=== PATIENT | male | born 1935 | race Caucasian/White ===

== ENCOUNTER 2020-12-19 04:59 | Inpatient (IN) | payer OTHER, BC ==
[2020-12-19 05:14] VITALS: BMI 27.3
[2020-12-19 05:46] LABS: EOS % 6.3 % (0-4.5); HEMATOCRIT 29.5 % (35.4-49); MCH 30.7 pg (25.7-33.7); MEAN CELL VOLUME 90.5 fl (80-96); MEAN PLT VOLUME 7.5 fl (7.5-11.1); MONO % 8.5 % (3.8-10.2); NEUT % 61.2 % (42.8-82.8); PLATELET COUNT 110 K/MM3 (134-434); RBC 3.26 M/mm3 (4.00-5.60); RDW 16.9 % (11.9-15.9); WHITE BLOOD COUNT 2.2 K/mm3 (4.0-10.0)
[2020-12-19 06:11] LABS: CHLORIDE 114 mmol/L (98-107); SODIUM 143 mmol/L (136-145)
[2020-12-19 06:13] LABS: ALBUMIN 3.2 g/dl (3.4-5.0); ANION GAP 6 MMOL/L (8-16); BLOOD UREA NITROGEN 27.5 mg/dL (7-18); CALCIUM 8.5 mg/dL (8.5-10.1); CO2 23 mmol/L (21-32); GLUCOSE,RANDOM 95 mg/dL (74-106)
[2020-12-19 06:16] LABS: SGOT/AST 61 U/L (15-37); SGPT/ALT 41 U/L (13-61)
[2020-12-19 06:17] LABS: CREATININE 1.9 mg/dL (0.55-1.3)
[2020-12-19 06:18] LABS: BILIRUBIN,TOTAL 0.6 mg/dL (0.2-1)
[2020-12-19 06:19] LABS: ALK PHOS 64 U/L (45-117)
[2020-12-19] MEDS ORDERED: PANTOPRAZOLE 40 MG TABLET ONE (12:23)
[2020-12-19] MEDS ORDERED: amLODIPine BESYLATE 5 MG TABLET (FP) ONE (12:23)
[2020-12-19] MEDS ORDERED: LEVOTHYROXINE NA 25 MCG TABLET (FP) ONE (12:24)
[2020-12-19] MEDS ORDERED: CARVEDILOL 12.5 MG TABLET (FP) ONE (12:24)
[2020-12-19] MEDS ORDERED: CARVEDILOL 3.125 MG TABLET (FP) ONE ×2 (12:24→12:29)
[2020-12-19] MEDS ORDERED: TAMSULOSIN HCL 0.4 MG CAP ONE (12:25)
[2020-12-19] MEDS ORDERED: ASCORBIC ACID 500 MG TABLET (FP) ONE (12:29)
[2020-12-19] MEDS: MULTIVITAMINS THER W-MINERALS COMBO TABLET (FP) PO SCH (12:45)
[2020-12-19] MEDS: INSULIN SLIDING SCALE (NOVOLOG) 1 VIAL SQ SCH ×3 (12:45→21:58)
[2020-12-19] MEDS: TAMSULOSIN HCL 0.4 MG CAP PO SCH (12:45)
[2020-12-19] MEDS: CHOLECALCIFEROL (VIT D3) 5000 UNITS (125 MCG) CAP PO SCH (12:45)
[2020-12-19] MEDS: FINASTERIDE 5 MG TABLET (FP) PO SCH (12:45)
[2020-12-19] MEDS: ASCORBIC ACID 500 MG TABLET (FP) PO SCH (12:45)
[2020-12-19] MEDS: amLODIPine BESYLATE 5 MG TABLET (FP) PO SCH (12:45)
[2020-12-19] MEDS: PANTOPRAZOLE 40 MG TABLET PO SCH (12:45)
[2020-12-19] MEDS: LEVOTHYROXINE NA 25 MCG TABLET (FP) PO SCH (12:45)
[2020-12-19] MEDS: FENOFIBRIC ACID 135 MG CAP PO SCH (12:45)
[2020-12-19] MEDS: CARVEDILOL 3.125 MG TABLET (FP) PO SCH (12:45)
[2020-12-19] MEDS: CARVEDILOL 12.5 MG TABLET (FP) PO SCH ×2 (12:45→21:58)
[2020-12-19] MEDS ORDERED: WARFARIN NA 1 MG TABLET ONE (17:37)
[2020-12-19] MEDS ORDERED: WARFARIN NA 1 MG TABLET PO SCH (18:00)
[2020-12-19] MEDS ORDERED: ROSUVASTATIN CA 10 MG TABLET (FP) PO SCH (22:00)
[2020-12-19] MEDS ORDERED: PATIENT'S OWN MEDICATION (NON-FORMULARY) (Ubidecarenone [Coq-10] 100 MG Capsule) PO SCH (22:00)
[2020-12-19] MEDS ORDERED: SIMETHICONE 80 MG TAB.CHEW (FP) PO PRN (22:10)
[2020-12-20] MEDS: INSULIN SLIDING SCALE (NOVOLOG) 1 VIAL SQ SCH (06:19)
[2020-12-20] MEDS: LEVOTHYROXINE NA 25 MCG TABLET (FP) PO SCH (06:19)
[2020-12-20 06:34] VITALS: TEMP 98.2
[2020-12-20] MEDS ORDERED: PT OWN MED DRAWER 7, Y5N ONE (09:22)
[2020-12-20] MEDS: PANTOPRAZOLE 40 MG TABLET PO SCH (09:33)
[2020-12-20] MEDS: FINASTERIDE 5 MG TABLET (FP) PO SCH (09:33)
[2020-12-20] MEDS: MULTIVITAMINS THER W-MINERALS COMBO TABLET (FP) PO SCH (09:33)
[2020-12-20] MEDS: CARVEDILOL 3.125 MG TABLET (FP) PO SCH (09:33)
[2020-12-20] MEDS: FENOFIBRIC ACID 135 MG CAP PO SCH (09:33)
[2020-12-20] MEDS: CHOLECALCIFEROL (VIT D3) 5000 UNITS (125 MCG) CAP PO SCH (09:33)
[2020-12-20] MEDS: amLODIPine BESYLATE 5 MG TABLET (FP) PO SCH (09:33)
[2020-12-20] MEDS: CARVEDILOL 12.5 MG TABLET (FP) PO SCH (09:33)
[2020-12-20] MEDS: TAMSULOSIN HCL 0.4 MG CAP PO SCH (09:34)
[2020-12-20] MEDS: ASCORBIC ACID 500 MG TABLET (FP) PO SCH (09:34)
[2020-12-20] MEDS ORDERED: ASPIRIN 81 MG CHEWABLE TABLETS PO SCH (10:00)
[2020-12-20 10:28] VITALS: BP 139/56; PULSE 59
== END 2020-12-20 11:51 | disposition home or self-care (01) | DRG 313 ==
LOC: JER 04:59 → JERBED 07:03 → J4S 21:42
PROVIDERS: ATTEND Student in an Organized Health Care Education/Training Program
DX: R07.9 Chest pain, unspecified (principal); I25.10 Atherosclerotic heart disease of native coronary artery without angina pectoris; E78.5 Hyperlipidemia, unspecified; I12.9 Hypertensive chronic kidney disease with stage 1 through stage 4 chronic kidney disease, or unspecified chronic kidney disease; I48.0 Paroxysmal atrial fibrillation; R00.1 Bradycardia, unspecified; N18.9 Chronic kidney disease, unspecified; E03.9 Hypothyroidism, unspecified; Z95.5 Presence of coronary angioplasty implant and graft; Z95.1 Presence of aortocoronary bypass graft
CPT/HCPCS: 36415; 71045-TC-FY; 80053; 82272; 82550; 82962; 84484; 85025; 99285-25; C9803; U0003; U0005

== ENCOUNTER 2021-04-09 14:50 | Inpatient (IN) | payer OTHER, BC ==
[2021-04-09] MEDS ORDERED: FAMOTIDINE 20 MG/50 ML IVPB 20 MG/50 ML MG IVPB ONE ×2 (16:45→16:48)
[2021-04-09 17:53] LABS: BASO % 0.6 % (0-2.0); EOS % 5.6 % (0-4.5); HEMATOCRIT 27.3 % (35.4-49); HEMOGLOBIN 9.1 GM/dL (11.7-16.9); LYMPH % 18.5 % (8-40); MCH 31.2 pg (25.7-33.7); MCHC 33.4 g/dl (32.0-35.9); MEAN CELL VOLUME 93.4 fl (80-96); MEAN PLT VOLUME 7.2 fl (7.5-11.1); MONO % 8.2 % (3.8-10.2); NEUT % 67.1 % (42.8-82.8); PLATELET COUNT 88 10^3/uL (134-434); RBC 2.92 M/mm3 (4.00-5.60); RDW 18.7 % (11.9-15.9); WHITE BLOOD COUNT 3.1 K/mm3 (4.0-10.0)
[2021-04-09 17:59] LABS: INR 2.15 (0.83-1.09); PROTHROMBIN TIME (PATIENT) 25.4 SEC (9.7-13.0)
[2021-04-09 18:01] LABS: ACTIVATED PTT 34.9 SECONDS (25.2-36.5)
[2021-04-09 18:13] LABS: CHLORIDE 115 mmol/L (98-107); SODIUM 142 mmol/L (136-145)
[2021-04-09 18:17] LABS: ALBUMIN 2.2 g/dl (3.4-5.0); ANION GAP 7 MMOL/L (8-16); CO2 20 mmol/L (21-32)
[2021-04-09 18:18] LABS: BLOOD UREA NITROGEN 58.4 mg/dL (7-18); GLUCOSE,RANDOM 65 mg/dL (74-106)
[2021-04-09 18:20] LABS: SGPT/ALT 48 U/L (13-61)
[2021-04-09 18:21] LABS: BILIRUBIN,TOTAL 1.1 mg/dL (0.2-1); CREATININE 5.2 mg/dL (0.55-1.3); SGOT/AST 68 U/L (15-37); TOT PROT 5.3 g/dl (6.4-8.2)
[2021-04-09 18:23] LABS: ALK PHOS 74 U/L (45-117)
[2021-04-09 18:25] LABS: N-TERMINAL BNP 2737.5 pg/ml (5-450)
[2021-04-09] MEDS ORDERED: SODIUM CHLORIDE 0.9% 500 ML INFUS.BAG IV ONE (18:51)
[2021-04-09] MEDS ORDERED: SODIUM CHLORIDE 1,000 ML IV SCH (23:00)
[2021-04-09 23:18] LABS: EPI CELLS 9 /uL (0-25.1); HYALINE CASTS 2 /uL (0-3.1); PH,URINE 5.5 (5.0-8.0); URINE APPEARANCE CLOUDY; URINE BACTERIA 45 /uL (0-1359); URINE BILIRUBIN NEGATIVE (NEGATIVE); URINE COLOR YELLOW; URINE GLUCOSE (UA) NEGATIVE (NEGATIVE); URINE KETONE NEGATIVE (NEGATIVE); URINE LEUK ESTERASE NEGATIVE (NEGATIVE); URINE NITRITE NEGATIVE (NEGATIVE); URINE PROTEIN 2+ (NEGATIVE); URINE RBC 2 /uL (0-23.9); URINE UROBILINOGEN 0.2 mg/dL (0.2-1.0); URINE WBC 27 /uL (0-25.8)
[2021-04-10] MEDS ORDERED: LEVOTHYROXINE NA 25 MCG TABLET (FP) ONE ×2 (06:05→10:07)
[2021-04-10] MEDS: INSULIN SLIDING SCALE (NOVOLOG) 1 VIAL SQ SCH ×4 (06:33→22:15)
[2021-04-10] MEDS ORDERED: LEVOTHYROXINE NA 25 MCG TABLET (FP) PO SCH (07:00)
[2021-04-10 09:30] LABS: HEMATOCRIT 27.7 % (35.4-49); HEMOGLOBIN 9.5 GM/dL (11.7-16.9); MCH 32.2 pg (25.7-33.7); MCHC 34.4 g/dl (32.0-35.9); MEAN CELL VOLUME 93.4 fl (80-96); MEAN PLT VOLUME 7.4 fl (7.5-11.1); PLATELET COUNT 91 10^3/uL (134-434); RBC 2.96 M/mm3 (4.00-5.60); RDW 18.5 % (11.9-15.9)
[2021-04-10 09:55] LABS: CALCIUM 7.9 mg/dL (8.5-10.1)
[2021-04-10 09:56] LABS: ALBUMIN 2.3 g/dl (3.4-5.0); BLOOD UREA NITROGEN 53.6 mg/dL (7-18); MAGNESIUM 1.9 mg/dL (1.8-2.4)
[2021-04-10 09:58] LABS: CREATININE 4.9 mg/dL (0.55-1.3); PHOSPHOROUS 3.4 mg/dL (2.5-4.9)
[2021-04-10 10:00] LABS: BILIRUBIN,TOTAL 1.3 mg/dL (0.2-1); TOT PROT 5.4 g/dl (6.4-8.2)
[2021-04-10] MEDS ORDERED: CHOLECALCIFEROL (VIT D3) 5000 UNITS (125 MCG) CAP PO SCH (10:00)
[2021-04-10] MEDS ORDERED: CARVEDILOL 3.125 MG TABLET (FP) PO SCH (10:00)
[2021-04-10] MEDS ORDERED: ASCORBIC ACID 500 MG TABLET (FP) PO SCH (10:00)
[2021-04-10] MEDS ORDERED: [UNRECOGNIZED DRUG - OTHER] PO SCH (10:00)
[2021-04-10] MEDS ORDERED: CARVEDILOL 12.5 MG TABLET (FP) PO SCH (10:00)
[2021-04-10] MEDS ORDERED: VIT BCOMP C PO SCH (10:00)
[2021-04-10] MEDS ORDERED: ZINC PO SCH (10:00)
[2021-04-10] MEDS ORDERED: FOLIC ACID PO SCH (10:00)
[2021-04-10] MEDS ORDERED: PANTOPRAZOLE 40 MG TABLET PO SCH (10:00)
[2021-04-10] MEDS ORDERED: PANTOPRAZOLE 20 MG TABLET PO ONE (10:06)
[2021-04-10] MEDS ORDERED: ASCORBIC ACID 500 MG TABLET (FP) ONE (10:07)
[2021-04-10] MEDS ORDERED: CARVEDILOL 12.5 MG TABLET (FP) ONE (10:53)
[2021-04-10] MEDS ORDERED: SODIUM CHLORIDE 1,000 ML IV SCH (12:45)
[2021-04-10] MEDS: SODIUM CHLORIDE 0.45% 1,000 ML IV SCH (13:45)
[2021-04-10] MEDS ORDERED: TRIMETHOBENZAMIDE HCL 300 MG CAPSULE PO ONE (15:02)
[2021-04-10] MEDS ORDERED: WARFARIN NA 2 MG TABLET PO SCH (18:00)
[2021-04-10] MEDS: ROSUVASTATIN CA 10 MG TABLET (FP) PO SCH ×2 (22:14→22:29)
[2021-04-10] MEDS: CARVEDILOL 12.5 MG TABLET (FP) PO SCH ×2 (22:14→22:29)
[2021-04-10] MEDS: WARFARIN NA 2 MG TABLET PO SCH (22:15)
[2021-04-11] MEDS: LEVOTHYROXINE NA 25 MCG TABLET (FP) PO SCH (06:50)
[2021-04-11] MEDS: INSULIN SLIDING SCALE (NOVOLOG) 1 VIAL SQ SCH ×4 (06:50→22:10)
[2021-04-11] MEDS ORDERED: ZINC PO SCH (10:00)
[2021-04-11] MEDS ORDERED: [UNRECOGNIZED DRUG - OTHER] PO SCH (10:00)
[2021-04-11] MEDS ORDERED: FOLIC ACID PO SCH (10:00)
[2021-04-11] MEDS ORDERED: VIT BCOMP C PO SCH (10:00)
[2021-04-11 10:44] LABS: EOS % 6.5 % (0-4.5); HEMATOCRIT 29.5 % (35.4-49); LYMPH % 16.5 % (8-40); MCH 32.1 pg (25.7-33.7); MCHC 34.1 g/dl (32.0-35.9); MEAN PLT VOLUME 7.1 fl (7.5-11.1); MONO % 8.1 % (3.8-10.2); NEUT % 67.9 % (42.8-82.8); PLATELET COUNT 113 10^3/uL (134-434); RBC 3.13 M/mm3 (4.00-5.60); RDW 18.5 % (11.9-15.9); WHITE BLOOD COUNT 4.3 K/mm3 (4.0-10.0)
[2021-04-11 11:13] VITALS: BMI 30.7
[2021-04-11 11:13] LABS: ALBUMIN 2.1 g/dl (3.4-5.0); BLOOD UREA NITROGEN 61.3 mg/dL (7-18)
[2021-04-11] MEDS: ASCORBIC ACID 500 MG TABLET (FP) PO SCH (11:13)
[2021-04-11] MEDS: PANTOPRAZOLE 40 MG TABLET PO SCH (11:13)
[2021-04-11] MEDS: CARVEDILOL 12.5 MG TABLET (FP) PO SCH (11:13)
[2021-04-11 11:16] LABS: BILIRUBIN,TOTAL 1.4 mg/dL (0.2-1); CALCIUM 8.2 mg/dL (8.5-10.1); CREATININE 5.1 mg/dL (0.55-1.3); TOT PROT 5.2 g/dl (6.4-8.2)
[2021-04-11] MEDS ORDERED: PT OWN MED DRAWER 7, Y5N ONE (12:03)
[2021-04-11] MEDS: CHOLECALCIFEROL (VIT D3) 5000 UNITS (125 MCG) CAP PO SCH (12:33)
[2021-04-11] MEDS: SODIUM CHLORIDE 0.45% 1,000 ML IV SCH (14:47)
[2021-04-11] MEDS: SODIUM BICARBONATE 650 MG TABLET PO SCH ×2 (17:52→22:10)
[2021-04-11] MEDS: SODIUM ZIRCONIUM CYCLOSILICATE (LOKELMA) 5 GM PACKET PO SCH (19:58)
[2021-04-11 20:20] LABS: INR 2.43 (0.83-1.09); PROTHROMBIN TIME (PATIENT) 28.7 SEC (9.7-13.0)
[2021-04-11] MEDS ORDERED: SODIUM CHLORIDE 250 ML IV STA ×2 (21:54→23:15)
[2021-04-11] MEDS: WARFARIN NA 2 MG TABLET PO SCH (22:11)
[2021-04-11] MEDS: ROSUVASTATIN CA 10 MG TABLET (FP) PO SCH (22:11)
[2021-04-12] MEDS: CARVEDILOL 12.5 MG TABLET (FP) PO SCH ×3 (00:59→21:34)
[2021-04-12] MEDS: SODIUM ZIRCONIUM CYCLOSILICATE (LOKELMA) 5 GM PACKET PO SCH ×2 (01:07→15:00)
[2021-04-12] MEDS: INSULIN SLIDING SCALE (NOVOLOG) 1 VIAL SQ SCH ×4 (06:20→21:35)
[2021-04-12] MEDS: LEVOTHYROXINE NA 25 MCG TABLET (FP) PO SCH (06:37)
[2021-04-12 10:05] LABS: BASO % 0.9 % (0-2.0); EOS % 6.5 % (0-4.5); HEMATOCRIT 25.2 % (35.4-49); HEMOGLOBIN 8.7 GM/dL (11.7-16.9); LYMPH % 19.9 % (8-40); MCH 31.9 pg (25.7-33.7); MCHC 34.5 g/dl (32.0-35.9); MEAN CELL VOLUME 92.3 fl (80-96); MEAN PLT VOLUME 7.5 fl (7.5-11.1); MONO % 9.2 % (3.8-10.2); NEUT % 63.5 % (42.8-82.8); PLATELET COUNT 93 10^3/uL (134-434); RBC 2.73 M/mm3 (4.00-5.60); WHITE BLOOD COUNT 2.7 K/mm3 (4.0-10.0)
[2021-04-12 10:33] LABS: BLOOD UREA NITROGEN 63.4 mg/dL (7-18)
[2021-04-12 10:34] LABS: ALBUMIN 1.9 g/dl (3.4-5.0); CALCIUM 7.9 mg/dL (8.5-10.1)
[2021-04-12 10:37] LABS: CREATININE 5.5 mg/dL (0.55-1.3)
[2021-04-12 10:38] LABS: BILIRUBIN,TOTAL 1.2 mg/dL (0.2-1); TOT PROT 4.7 g/dl (6.4-8.2)
[2021-04-12] MEDS ORDERED: PT OWN MED DRAWER 7, Y5N ONE (10:59)
[2021-04-12] MEDS: ASCORBIC ACID 500 MG TABLET (FP) PO SCH (11:42)
[2021-04-12] MEDS: CHOLECALCIFEROL (VIT D3) 5000 UNITS (125 MCG) CAP PO SCH (11:42)
[2021-04-12] MEDS: SODIUM BICARBONATE 650 MG TABLET PO SCH ×2 (11:42→21:34)
[2021-04-12] MEDS: PANTOPRAZOLE 40 MG TABLET PO SCH (11:42)
[2021-04-12] MEDS ORDERED: FUROSEMIDE 40 MG/4 ML INJECTABLE VIAL IVPUSH ONE (16:00)
[2021-04-12 16:57] LABS: INR 2.19 (0.83-1.09); PROTHROMBIN TIME (PATIENT) 27.1 SEC (9.7-13.0)
[2021-04-12] MEDS: ALBUMIN HUMAN 25% 12.5 GM/50 ML VIAL IVPB SCH ×4 (17:01→23:11)
[2021-04-12 18:07] LABS: FREE KAPPA,SERUM 1474.4 mg/L (3.3-19.4)
[2021-04-12] MEDS: WARFARIN NA 2 MG TABLET PO SCH (18:20)
[2021-04-12] MEDS: ROSUVASTATIN CA 10 MG TABLET (FP) PO SCH (21:34)
[2021-04-12 22:54] LABS: URINE APPEARANCE CLEAR; URINE BILIRUBIN NEGATIVE (NEGATIVE); URINE COLOR YELLOW; URINE GLUCOSE (UA) NEGATIVE (NEGATIVE); URINE KETONE NEGATIVE (NEGATIVE); URINE LEUK ESTERASE NEGATIVE (NEGATIVE); URINE NITRITE NEGATIVE (NEGATIVE); URINE PROTEIN 1+ (NEGATIVE); URINE UROBILINOGEN 0.2 mg/dL (0.2-1.0)
[2021-04-12 23:11] LABS: HYALINE CASTS 0.88 /uL (0-3.1); URINE RBC 20.9 /uL (0-23.9); URINE WBC 19.8 /uL (0-25.8)
[2021-04-12 23:12] LABS: URINE BACTERIA 10.2 /uL (0-1359)
[2021-04-13] MEDS: INSULIN SLIDING SCALE (NOVOLOG) 1 VIAL SQ SCH ×4 (06:28→21:11)
[2021-04-13] MEDS: LEVOTHYROXINE NA 25 MCG TABLET (FP) PO SCH (06:28)
[2021-04-13 09:30] LABS: HEMATOCRIT 21.6 % (35.4-49); HEMOGLOBIN 7.5 GM/dL (11.7-16.9); MCH 32.1 pg (25.7-33.7); MEAN CELL VOLUME 91.8 fl (80-96); PLATELET COUNT 88 10^3/uL (134-434); RBC 2.35 M/mm3 (4.00-5.60); RDW 18.1 % (11.9-15.9)
[2021-04-13] MEDS ORDERED: PT OWN MED DRAWER 7, Y5N ONE ×2 (09:34→12:19)
[2021-04-13 09:35] LABS: WHITE BLOOD COUNT 1.8 K/mm3 (4.0-10.0)
[2021-04-13] MEDS: CARVEDILOL 12.5 MG TABLET (FP) PO SCH ×2 (09:57→21:11)
[2021-04-13] MEDS: CHOLECALCIFEROL (VIT D3) 5000 UNITS (125 MCG) CAP PO SCH (09:57)
[2021-04-13] MEDS: ASCORBIC ACID 500 MG TABLET (FP) PO SCH (09:57)
[2021-04-13] MEDS: SODIUM BICARBONATE 650 MG TABLET PO SCH ×2 (09:57→21:11)
[2021-04-13] MEDS: PANTOPRAZOLE 40 MG TABLET PO SCH (09:57)
[2021-04-13 10:00] LABS: BLOOD UREA NITROGEN 67.9 mg/dL (7-18); CALCIUM 7.9 mg/dL (8.5-10.1); MAGNESIUM 2.1 mg/dL (1.8-2.4)
[2021-04-13 10:03] LABS: CREATININE 6.1 mg/dL (0.55-1.3)
[2021-04-13 10:05] LABS: BILIRUBIN,TOTAL 1.3 mg/dL (0.2-1); TOT PROT 4.9 g/dl (6.4-8.2)
[2021-04-13 10:12] LABS: ALBUMIN 2.6 g/dl (3.4-5.0)
[2021-04-13 10:40] LABS: ANISOCYTOSIS 0; MACROCYTOSIS 0; PLATELET ESTIMATE DECREASED
[2021-04-13 12:13] LABS: INR 2.41 (0.83-1.09); PROTHROMBIN TIME (PATIENT) 28.4 SEC (9.7-13.0)
[2021-04-13] MEDS: ZINC OXIDE/PANTHENOL/VITAMIN E 56 GM TUBE TP SCH (13:18)
[2021-04-13] MEDS: ALBUMIN HUMAN 25% 12.5 GM/50 ML VIAL IVPB SCH ×2 (14:55→17:10)
[2021-04-13] MEDS: WARFARIN NA 2 MG TABLET PO SCH (17:05)
[2021-04-13] MEDS: ROSUVASTATIN CA 10 MG TABLET (FP) PO SCH (21:11)
[2021-04-14] MEDS: LEVOTHYROXINE NA 25 MCG TABLET (FP) PO SCH (06:08)
[2021-04-14] MEDS: INSULIN SLIDING SCALE (NOVOLOG) 1 VIAL SQ SCH ×4 (06:08→21:28)
[2021-04-14 08:07] LABS: HEMATOCRIT 21.2 % (35.4-49); HEMOGLOBIN 7.3 GM/dL (11.7-16.9); MCHC 34.4 g/dl (32.0-35.9); MEAN CELL VOLUME 92.8 fl (80-96); MEAN PLT VOLUME 7.2 fl (7.5-11.1); PLATELET COUNT 93 10^3/uL (134-434); RBC 2.29 M/mm3 (4.00-5.60); RDW 18.6 % (11.9-15.9)
[2021-04-14 08:20] LABS: INR 2.78 (0.83-1.09); PROTHROMBIN TIME (PATIENT) 34.5 SEC (9.7-13.0)
[2021-04-14 08:28] LABS: ALBUMIN 2.6 g/dl (3.4-5.0)
[2021-04-14 08:29] LABS: BLOOD UREA NITROGEN 73.3 mg/dL (7-18); CALCIUM 8.4 mg/dL (8.5-10.1)
[2021-04-14 08:33] LABS: CREATININE 6.5 mg/dL (0.55-1.3)
[2021-04-14 08:34] LABS: BILIRUBIN,TOTAL 1.2 mg/dL (0.2-1); TOT PROT 4.9 g/dl (6.4-8.2)
[2021-04-14 08:58] LABS: WHITE BLOOD COUNT 1.6 K/mm3 (4.0-10.0)
[2021-04-14 10:14] LABS: ANISOCYTOSIS 1+; MACROCYTOSIS 0; PLATELET ESTIMATE DECREASED
[2021-04-14] MEDS ORDERED: PT OWN MED DRAWER 7, Y5N ONE (10:28)
[2021-04-14] MEDS: CARVEDILOL 12.5 MG TABLET (FP) PO SCH ×2 (10:41→21:27)
[2021-04-14] MEDS: ASCORBIC ACID 500 MG TABLET (FP) PO SCH (10:47)
[2021-04-14] MEDS: CHOLECALCIFEROL (VIT D3) 5000 UNITS (125 MCG) CAP PO SCH (10:48)
[2021-04-14] MEDS: PANTOPRAZOLE 40 MG TABLET PO SCH (10:48)
[2021-04-14] MEDS: SODIUM BICARBONATE 650 MG TABLET PO SCH ×2 (10:48→21:27)
[2021-04-14 11:07] LABS: ANTIGLOMERULAR BASEMENT MEN.AB 3 units (0-20)
[2021-04-14] MEDS: ZINC OXIDE/PANTHENOL/VITAMIN E 56 GM TUBE TP SCH (12:00)
[2021-04-14 15:12] LABS: EPI CELLS 5 /uL (0-25.1); HYALINE CASTS 1 /uL (0-3.1); URINE APPEARANCE CLEAR; URINE BACTERIA 166 /uL (0-1359); URINE BILIRUBIN NEGATIVE (NEGATIVE); URINE COLOR YELLOW; URINE GLUCOSE (UA) NEGATIVE (NEGATIVE); URINE KETONE NEGATIVE (NEGATIVE); URINE LEUK ESTERASE NEGATIVE (NEGATIVE); URINE NITRITE NEGATIVE (NEGATIVE); URINE PROTEIN 1+ (NEGATIVE); URINE UROBILINOGEN 0.2 mg/dL (0.2-1.0); URINE WBC 17 /uL (0-25.8)
[2021-04-14] MEDS: WARFARIN NA 2 MG TABLET PO SCH (18:43)
[2021-04-14 21:06] LABS: GLIADIN ANTIBODY IGA 3 units (0-19); GLIADIN ANTIBODY IGG 2 units (0-19); TRANSGLUTAMINASE IGG < 2 U/mL (0-5)
[2021-04-14] MEDS: ROSUVASTATIN CA 10 MG TABLET (FP) PO SCH (21:28)
[2021-04-14 23:06] LABS: CARCINOEMBRYONIC ANTIGEN 1.6 ng/mL (0.0-4.7)
[2021-04-15] MEDS: LEVOTHYROXINE NA 25 MCG TABLET (FP) PO SCH (06:27)
[2021-04-15] MEDS: INSULIN SLIDING SCALE (NOVOLOG) 1 VIAL SQ SCH ×4 (06:39→21:00)
[2021-04-15 07:24] LABS: BASO % 1.2 % (0-2.0); EOS % 8.9 % (0-4.5); HEMATOCRIT 25.5 % (35.4-49); HEMOGLOBIN 8.8 GM/dL (11.7-16.9); INR 2.77 (0.83-1.09); LYMPH % 21.9 % (8-40); MCH 31.6 pg (25.7-33.7); MCHC 34.5 g/dl (32.0-35.9); MEAN CELL VOLUME 91.8 fl (80-96); MONO % 10.2 % (3.8-10.2); NEUT % 57.8 % (42.8-82.8); PLATELET COUNT 86 10^3/uL (134-434); PROTHROMBIN TIME (PATIENT) 34.4 SEC (9.7-13.0); RBC 2.78 M/mm3 (4.00-5.60); RDW 17.3 % (11.9-15.9); WHITE BLOOD COUNT 2.1 K/mm3 (4.0-10.0)
[2021-04-15 07:36] LABS: CALCIUM 7.9 mg/dL (8.5-10.1)
[2021-04-15 07:37] LABS: ALBUMIN 2.3 g/dl (3.4-5.0); BLOOD UREA NITROGEN 75.7 mg/dL (7-18)
[2021-04-15 07:40] LABS: CREATININE 6.7 mg/dL (0.55-1.3)
[2021-04-15 07:41] LABS: BILIRUBIN,TOTAL 1.2 mg/dL (0.2-1)
[2021-04-15 07:42] LABS: TOT PROT 4.8 g/dl (6.4-8.2)
[2021-04-15] MEDS ORDERED: PT OWN MED DRAWER 7, Y5N ONE ×2 (10:19→14:21)
[2021-04-15] MEDS: CARVEDILOL 12.5 MG TABLET (FP) PO SCH ×2 (10:30→21:01)
[2021-04-15] MEDS: CHOLECALCIFEROL (VIT D3) 5000 UNITS (125 MCG) CAP PO SCH (10:30)
[2021-04-15] MEDS: SODIUM BICARBONATE 650 MG TABLET PO SCH ×2 (10:30→21:02)
[2021-04-15] MEDS: PANTOPRAZOLE 40 MG TABLET PO SCH (10:30)
[2021-04-15] MEDS: ASCORBIC ACID 500 MG TABLET (FP) PO SCH (10:30)
[2021-04-15] MEDS: ZINC OXIDE/PANTHENOL/VITAMIN E 56 GM TUBE TP SCH (16:05)
[2021-04-15] MEDS: ROSUVASTATIN CA 10 MG TABLET (FP) PO SCH (21:01)
[2021-04-16] MEDS: INSULIN SLIDING SCALE (NOVOLOG) 1 VIAL SQ SCH ×4 (06:04→22:25)
[2021-04-16] MEDS: LEVOTHYROXINE NA 25 MCG TABLET (FP) PO SCH (06:06)
[2021-04-16 07:01] LABS: BASO % 0.8 % (0-2.0); EOS % 7.7 % (0-4.5); HEMATOCRIT 26.5 % (35.4-49); HEMOGLOBIN 9.1 GM/dL (11.7-16.9); LYMPH % 20.9 % (8-40); MCH 31.7 pg (25.7-33.7); MCHC 34.3 g/dl (32.0-35.9); MEAN CELL VOLUME 92.4 fl (80-96); MEAN PLT VOLUME 7.2 fl (7.5-11.1); MONO % 8.9 % (3.8-10.2); NEUT % 61.7 % (42.8-82.8); PLATELET COUNT 97 10^3/uL (134-434); RBC 2.86 M/mm3 (4.00-5.60); RDW 17.1 % (11.9-15.9); WHITE BLOOD COUNT 2.3 K/mm3 (4.0-10.0)
[2021-04-16 07:06] LABS: INR 2.96 (0.83-1.09); PROTHROMBIN TIME (PATIENT) 36.8 SEC (9.7-13.0)
[2021-04-16 07:27] LABS: ALBUMIN 2.3 g/dl (3.4-5.0); CALCIUM 8.1 mg/dL (8.5-10.1)
[2021-04-16 07:28] LABS: BLOOD UREA NITROGEN 76.6 mg/dL (7-18); MAGNESIUM 2.1 mg/dL (1.8-2.4)
[2021-04-16 07:29] LABS: CREATININE 6.6 mg/dL (0.55-1.3)
[2021-04-16 07:31] LABS: TOT PROT 4.8 g/dl (6.4-8.2)
[2021-04-16] MEDS ORDERED: PT OWN MED DRAWER 7, Y5N ONE ×2 (09:50→10:11)
[2021-04-16] MEDS: SODIUM BICARBONATE 650 MG TABLET PO SCH ×3 (09:53→22:25)
[2021-04-16] MEDS: PANTOPRAZOLE 40 MG TABLET PO SCH (09:54)
[2021-04-16] MEDS: TAMSULOSIN HCL 0.4 MG CAP PO SCH (09:54)
[2021-04-16] MEDS: ASCORBIC ACID 500 MG TABLET (FP) PO SCH (09:54)
[2021-04-16] MEDS: CARVEDILOL 12.5 MG TABLET (FP) PO SCH ×2 (09:54→22:25)
[2021-04-16] MEDS: CHOLECALCIFEROL (VIT D3) 5000 UNITS (125 MCG) CAP PO SCH (09:55)
[2021-04-16] MEDS: ZINC OXIDE/PANTHENOL/VITAMIN E 56 GM TUBE TP SCH (11:29)
[2021-04-16 16:08] LABS: ATYPICAL pANCA <1:20 titer (Neg:<1:20); C-ANCA <1:20 titer (Neg:<1:20)
[2021-04-16] MEDS: DONEPEZIL HCL 5 MG TABLET (FP) PO SCH (22:25)
[2021-04-16] MEDS: ROSUVASTATIN CA 10 MG TABLET (FP) PO SCH (22:25)
[2021-04-17] MEDS: SODIUM BICARBONATE 650 MG TABLET PO SCH ×3 (06:03→22:07)
[2021-04-17] MEDS: LEVOTHYROXINE NA 25 MCG TABLET (FP) PO SCH (06:03)
[2021-04-17 06:36] LABS: BASO % 0.7 % (0-2.0); EOS % 6.3 % (0-4.5); HEMATOCRIT 26.6 % (35.4-49); HEMOGLOBIN 9.1 GM/dL (11.7-16.9); LYMPH % 24.5 % (8-40); MCH 31.8 pg (25.7-33.7); MCHC 34.1 g/dl (32.0-35.9); MEAN CELL VOLUME 93.1 fl (80-96); MEAN PLT VOLUME 7.2 fl (7.5-11.1); MONO % 9.7 % (3.8-10.2); NEUT % 58.8 % (42.8-82.8); PLATELET COUNT 88 10^3/uL (134-434); RBC 2.85 M/mm3 (4.00-5.60); RDW 17.5 % (11.9-15.9); WHITE BLOOD COUNT 2.6 K/mm3 (4.0-10.0)
[2021-04-17] MEDS: INSULIN SLIDING SCALE (NOVOLOG) 1 VIAL SQ SCH ×4 (06:39→22:10)
[2021-04-17 06:49] LABS: INR 2.88 (0.83-1.09); PROTHROMBIN TIME (PATIENT) 35.8 SEC (9.7-13.0)
[2021-04-17 06:58] LABS: ALBUMIN 2.2 g/dl (3.4-5.0); CALCIUM 7.8 mg/dL (8.5-10.1); MAGNESIUM 2.2 mg/dL (1.8-2.4)
[2021-04-17 07:02] LABS: CREATININE 6.7 mg/dL (0.55-1.3)
[2021-04-17 07:03] LABS: BILIRUBIN,TOTAL 1.3 mg/dL (0.2-1); TOT PROT 4.7 g/dl (6.4-8.2)
[2021-04-17] MEDS ORDERED: PT OWN MED DRAWER 7, Y5N ONE (10:04)
[2021-04-17] MEDS: TAMSULOSIN HCL 0.4 MG CAP PO SCH (10:11)
[2021-04-17] MEDS: CARVEDILOL 12.5 MG TABLET (FP) PO SCH ×2 (10:11→22:06)
[2021-04-17] MEDS: ASCORBIC ACID 500 MG TABLET (FP) PO SCH (10:12)
[2021-04-17] MEDS: CHOLECALCIFEROL (VIT D3) 5000 UNITS (125 MCG) CAP PO SCH (10:12)
[2021-04-17] MEDS: PANTOPRAZOLE 40 MG TABLET PO SCH (10:12)
[2021-04-17] MEDS: ZINC OXIDE/PANTHENOL/VITAMIN E 56 GM TUBE TP SCH (14:35)
[2021-04-17] MEDS: DONEPEZIL HCL 5 MG TABLET (FP) PO SCH (22:06)
[2021-04-17] MEDS: ROSUVASTATIN CA 10 MG TABLET (FP) PO SCH (22:06)
[2021-04-18] MEDS: LEVOTHYROXINE NA 25 MCG TABLET (FP) PO SCH (06:22)
[2021-04-18] MEDS: SODIUM BICARBONATE 650 MG TABLET PO SCH ×3 (06:22→22:12)
[2021-04-18] MEDS: INSULIN SLIDING SCALE (NOVOLOG) 1 VIAL SQ SCH ×4 (06:26→22:26)
[2021-04-18 07:05] LABS: BASO % 0.7 % (0-2.0); EOS % 8.6 % (0-4.5); HEMATOCRIT 27.4 % (35.4-49); HEMOGLOBIN 9.4 GM/dL (11.7-16.9); LYMPH % 21.6 % (8-40); MCH 31.8 pg (25.7-33.7); MCHC 34.2 g/dl (32.0-35.9); MEAN CELL VOLUME 92.8 fl (80-96); MEAN PLT VOLUME 7.6 fl (7.5-11.1); MONO % 8.6 % (3.8-10.2); NEUT % 60.5 % (42.8-82.8); PLATELET COUNT 79 10^3/uL (134-434); RBC 2.95 M/mm3 (4.00-5.60); RDW 17.7 % (11.9-15.9); WHITE BLOOD COUNT 2.4 K/mm3 (4.0-10.0)
[2021-04-18 07:28] LABS: ALBUMIN 2.3 g/dl (3.4-5.0); BLOOD UREA NITROGEN 78.8 mg/dL (7-18); CALCIUM 7.9 mg/dL (8.5-10.1)
[2021-04-18 07:29] LABS: BILIRUBIN,TOTAL 1.4 mg/dL (0.2-1)
[2021-04-18 07:30] LABS: MAGNESIUM 2.1 mg/dL (1.8-2.4); TOT PROT 4.9 g/dl (6.4-8.2)
[2021-04-18 07:31] LABS: CREATININE 6.6 mg/dL (0.55-1.3)
[2021-04-18] MEDS: TAMSULOSIN HCL 0.4 MG CAP PO SCH (08:54)
[2021-04-18] MEDS ORDERED: PT OWN MED DRAWER 7, Y5N ONE ×4 (10:35→21:37)
[2021-04-18] MEDS: CARVEDILOL 12.5 MG TABLET (FP) PO SCH ×2 (10:39→22:12)
[2021-04-18] MEDS: ASCORBIC ACID 500 MG TABLET (FP) PO SCH (10:39)
[2021-04-18] MEDS: CHOLECALCIFEROL (VIT D3) 5000 UNITS (125 MCG) CAP PO SCH (10:39)
[2021-04-18] MEDS: PANTOPRAZOLE 40 MG TABLET PO SCH (10:39)
[2021-04-18] MEDS: TRIMETHOBENZAMIDE HCL 300 MG CAPSULE PO PRN (10:39)
[2021-04-18] MEDS: ZINC OXIDE/PANTHENOL/VITAMIN E 56 GM TUBE TP SCH (12:02)
[2021-04-18] MEDS: BANATROL PLUS POWDER PACKET PO SCH ×2 (14:58→22:17)
[2021-04-18] MEDS: ROSUVASTATIN CA 10 MG TABLET (FP) PO SCH (22:12)
[2021-04-18] MEDS: DONEPEZIL HCL 5 MG TABLET (FP) PO SCH (22:12)
[2021-04-19] MEDS: BANATROL PLUS POWDER PACKET PO SCH ×3 (05:50→21:46)
[2021-04-19] MEDS: SODIUM BICARBONATE 650 MG TABLET PO SCH ×3 (05:50→21:45)
[2021-04-19] MEDS: INSULIN SLIDING SCALE (NOVOLOG) 1 VIAL SQ SCH ×4 (06:06→21:45)
[2021-04-19] MEDS: LEVOTHYROXINE NA 25 MCG TABLET (FP) PO SCH (06:06)
[2021-04-19 07:26] LABS: BASO % 0.9 % (0-2.0); HEMATOCRIT 26.7 % (35.4-49); HEMOGLOBIN 9.2 GM/dL (11.7-16.9); LYMPH % 22.1 % (8-40); MCH 31.7 pg (25.7-33.7); MCHC 34.2 g/dl (32.0-35.9); MEAN CELL VOLUME 92.7 fl (80-96); MEAN PLT VOLUME 7.1 fl (7.5-11.1); MONO % 9.2 % (3.8-10.2); NEUT % 59.8 % (42.8-82.8); PLATELET COUNT 89 10^3/uL (134-434); RBC 2.89 M/mm3 (4.00-5.60); RDW 17.7 % (11.9-15.9); WHITE BLOOD COUNT 2.3 K/mm3 (4.0-10.0)
[2021-04-19 07:48] LABS: CALCIUM 7.9 mg/dL (8.5-10.1)
[2021-04-19 07:49] LABS: ALBUMIN 2.2 g/dl (3.4-5.0); BLOOD UREA NITROGEN 77.8 mg/dL (7-18); MAGNESIUM 2.1 mg/dL (1.8-2.4)
[2021-04-19 07:52] LABS: CREATININE 6.5 mg/dL (0.55-1.3)
[2021-04-19 07:53] LABS: BILIRUBIN,TOTAL 0.9 mg/dL (0.2-1)
[2021-04-19 07:54] LABS: TOT PROT 4.8 g/dl (6.4-8.2)
[2021-04-19] MEDS: TAMSULOSIN HCL 0.4 MG CAP PO SCH (08:25)
[2021-04-19] MEDS: CHOLECALCIFEROL (VIT D3) 5000 UNITS (125 MCG) CAP PO SCH (09:31)
[2021-04-19] MEDS: PANTOPRAZOLE 40 MG TABLET PO SCH (09:31)
[2021-04-19] MEDS: CARVEDILOL 12.5 MG TABLET (FP) PO SCH ×2 (09:31→21:45)
[2021-04-19] MEDS: ASCORBIC ACID 500 MG TABLET (FP) PO SCH (09:31)
[2021-04-19] MEDS: ZINC OXIDE/PANTHENOL/VITAMIN E 56 GM TUBE TP SCH (10:04)
[2021-04-19 12:04] LABS: INR 2.34 (0.83-1.09)
[2021-04-19] MEDS: ROSUVASTATIN CA 10 MG TABLET (FP) PO SCH (21:45)
[2021-04-19] MEDS: DONEPEZIL HCL 5 MG TABLET (FP) PO SCH (21:45)
[2021-04-20] MEDS: BANATROL PLUS POWDER PACKET PO SCH ×3 (06:12→22:04)
[2021-04-20] MEDS: SODIUM BICARBONATE 650 MG TABLET PO SCH ×3 (06:17→22:04)
[2021-04-20] MEDS: LEVOTHYROXINE NA 25 MCG TABLET (FP) PO SCH (06:17)
[2021-04-20] MEDS: INSULIN SLIDING SCALE (NOVOLOG) 1 VIAL SQ SCH ×4 (06:17→22:03)
[2021-04-20 08:08] LABS: INR 2.23 (0.83-1.09); PROTHROMBIN TIME (PATIENT) 27.6 SEC (9.7-13.0)
[2021-04-20] MEDS: PANTOPRAZOLE 40 MG TABLET PO SCH (09:32)
[2021-04-20] MEDS: ASCORBIC ACID 500 MG TABLET (FP) PO SCH (09:32)
[2021-04-20] MEDS: TAMSULOSIN HCL 0.4 MG CAP PO SCH (09:32)
[2021-04-20] MEDS: CARVEDILOL 12.5 MG TABLET (FP) PO SCH ×2 (09:32→22:04)
[2021-04-20] MEDS ORDERED: PT OWN MED DRAWER 7, Y5N ONE (09:35)
[2021-04-20] MEDS: CHOLECALCIFEROL (VIT D3) 5000 UNITS (125 MCG) CAP PO SCH (09:36)
[2021-04-20 10:23] LABS: ALBUMIN 2.3 g/dl (3.4-5.0); CALCIUM 7.8 mg/dL (8.5-10.1)
[2021-04-20 10:24] LABS: BLOOD UREA NITROGEN 79.4 mg/dL (7-18); MAGNESIUM 2.1 mg/dL (1.8-2.4)
[2021-04-20 10:27] LABS: CREATININE 6.4 mg/dL (0.55-1.3)
[2021-04-20 11:42] LABS: BASO % 1.1 % (0-2.0); EOS % 8.5 % (0-4.5); HEMATOCRIT 27.8 % (35.4-49); HEMOGLOBIN 9.5 GM/dL (11.7-16.9); LYMPH % 18.6 % (8-40); MCH 31.9 pg (25.7-33.7); MCHC 34.2 g/dl (32.0-35.9); MEAN CELL VOLUME 93.3 fl (80-96); MEAN PLT VOLUME 7.4 fl (7.5-11.1); MONO % 8.4 % (3.8-10.2); NEUT % 63.4 % (42.8-82.8); PLATELET COUNT 71 10^3/uL (134-434); RBC 2.98 M/mm3 (4.00-5.60); RDW 17.5 % (11.9-15.9); WHITE BLOOD COUNT 2.2 K/mm3 (4.0-10.0)
[2021-04-20] MEDS: ZINC OXIDE/PANTHENOL/VITAMIN E 56 GM TUBE TP SCH (11:45)
[2021-04-20] MEDS: DONEPEZIL HCL 5 MG TABLET (FP) PO SCH (22:04)
[2021-04-20] MEDS: ROSUVASTATIN CA 10 MG TABLET (FP) PO SCH (22:04)
[2021-04-21] MEDS: SODIUM BICARBONATE 650 MG TABLET PO SCH ×3 (05:59→21:51)
[2021-04-21] MEDS: TRIMETHOBENZAMIDE HCL 300 MG CAPSULE PO PRN (05:59)
[2021-04-21] MEDS: BANATROL PLUS POWDER PACKET PO SCH ×2 (05:59→13:20)
[2021-04-21] MEDS ORDERED: PT OWN MED DRAWER 7, Y5N ONE ×4 (05:59→21:44)
[2021-04-21] MEDS: LEVOTHYROXINE NA 25 MCG TABLET (FP) PO SCH (06:00)
[2021-04-21] MEDS: INSULIN SLIDING SCALE (NOVOLOG) 1 VIAL SQ SCH ×4 (06:12→21:55)
[2021-04-21 07:33] LABS: BASO % 0.8 % (0-2.0); EOS % 9.5 % (0-4.5); HEMATOCRIT 27.8 % (35.4-49); HEMOGLOBIN 9.4 GM/dL (11.7-16.9); LYMPH % 19.4 % (8-40); MCH 31.3 pg (25.7-33.7); MEAN CELL VOLUME 92.1 fl (80-96); MONO % 7.5 % (3.8-10.2); NEUT % 62.8 % (42.8-82.8); PLATELET COUNT 83 10^3/uL (134-434); RBC 3.01 M/mm3 (4.00-5.60); RDW 17.6 % (11.9-15.9); WHITE BLOOD COUNT 2.2 K/mm3 (4.0-10.0)
[2021-04-21 07:34] LABS: INR 2.03 (0.83-1.09); PROTHROMBIN TIME (PATIENT) 25.2 SEC (9.7-13.0)
[2021-04-21 07:53] LABS: ALBUMIN 2.3 g/dl (3.4-5.0); BLOOD UREA NITROGEN 76.7 mg/dL (7-18); MAGNESIUM 2.1 mg/dL (1.8-2.4)
[2021-04-21 07:56] LABS: CREATININE 6.3 mg/dL (0.55-1.3)
[2021-04-21 07:58] LABS: BILIRUBIN,TOTAL 1.2 mg/dL (0.2-1)
[2021-04-21] MEDS: TAMSULOSIN HCL 0.4 MG CAP PO SCH (09:04)
[2021-04-21] MEDS: AMINO ACIDS/PROTEIN HYDROLYS 30 ML LIQUID.PKT PO SCH ×2 (09:04→17:06)
[2021-04-21] MEDS: CARVEDILOL 12.5 MG TABLET (FP) PO SCH ×2 (09:04→21:51)
[2021-04-21] MEDS: PANTOPRAZOLE 40 MG TABLET PO SCH (09:04)
[2021-04-21] MEDS: ASCORBIC ACID 500 MG TABLET (FP) PO SCH (09:06)
[2021-04-21] MEDS: CHOLECALCIFEROL (VIT D3) 5000 UNITS (125 MCG) CAP PO SCH (09:09)
[2021-04-21] MEDS: ZINC OXIDE/PANTHENOL/VITAMIN E 56 GM TUBE TP SCH (11:33)
[2021-04-21] MEDS ORDERED: BANATROL PLUS POWDER PACKET PO SCH (15:18)
[2021-04-21 19:41] VITALS: BP 155/63; PULSE 69; TEMP 98.5
[2021-04-21] MEDS: ROSUVASTATIN CA 10 MG TABLET (FP) PO SCH (21:51)
[2021-04-21] MEDS: DONEPEZIL HCL 5 MG TABLET (FP) PO SCH (21:51)
== END 2021-04-21 23:00 | disposition short-term general hospital (02) | DRG 840 ==
LOC: JER 14:50 → JERBED 19:09 → J5S 04-10 14:16 → J4S 04-13 12:36
PROVIDERS: ADMIT Internal Medicine; ATTEND Nurse Practitioner Acute Care
DX: C85.10 Unspecified B-cell lymphoma, unspecified site (principal); N17.0 Acute kidney failure with tubular necrosis; R18.8 Other ascites; D61.818 Other pancytopenia; I12.9 Hypertensive chronic kidney disease with stage 1 through stage 4 chronic kidney disease, or unspecified chronic kidney disease; N18.9 Chronic kidney disease, unspecified; R19.5 Other fecal abnormalities; E11.22 Type 2 diabetes mellitus with diabetic chronic kidney disease; I25.10 Atherosclerotic heart disease of native coronary artery without angina pectoris; E78.5 Hyperlipidemia, unspecified; E03.9 Hypothyroidism, unspecified; N40.0 Benign prostatic hyperplasia without lower urinary tract symptoms; E87.5 Hyperkalemia; K63.5 Polyp of colon; K76.0 Fatty (change of) liver, not elsewhere classified; I48.0 Paroxysmal atrial fibrillation; Z95.0 Presence of cardiac pacemaker; Z95.5 Presence of coronary angioplasty implant and graft; Z95.1 Presence of aortocoronary bypass graft; E66.9 Obesity, unspecified; Z68.30 Body mass index [BMI] 30.0-30.9, adult
CPT/HCPCS: 36415; 36430; 70450-TC; 71045-TC-FY; 71250-TC; 74176-TC; 76705-TC; 76775-TC; 80053; 80061; 81003; 82105; 82140; 82272; 82378; 82436; 82550; 82570; 82728; 82784; 82962; 83036; 83516; 83520; 83540; 83550; 83615; 83735; 83880; 83883; 84100; 84133; 84155; 84156; 84165; 84300; 84443; 84466; 84484; 85025; 85027; 85045; 85610; 85651; 85730; 86038; 86140; 86225; 86256; 86705; 86850; 86900; 86901; 86922; 87040; 87522; 93005; 93010; 93306-TC; 93970-TC; 97116-GP; 97161-GP; 99285-25; C9803; P9047; P9058; U0003; U0005